=== PATIENT | male | born 1960 | race Hispanic/Latino ===

== ENCOUNTER 2021-08-14 12:43 | Emergency (ER) | payer MEDICARE ==
[2021-08-14 13:12] VITALS: BP 177/93
--- NOTE | 2021-08-14 14:18 | Emergency Department Report ---
ED General Adult HPI - General Chief complaint: Chest Pain Stated complaint: CHEST PAIN Time Seen by Provider: 08/14/21 14:13 Source: patient, EMS Mode of arrival: Wheelchair Limitations: No Limitations - History of Present Illness Initial comments: Patient is 60 years old male with history of open heart surgery, hypertension and depression. Patient brought to the emergency room from a local psychiatric facility for evaluation of chest pain that started last night on and off. Patient describes chest pain as sharp with no radiation, associated with palpitation but no shortness of breath. Patient stated that he is having some chills but no fever. Patient denied any nausea or vomiting. - Related Data Previous Rx's Medication Instructions Recorded Last Taken Type AtorvaSTATin [Lipitor] 40 mg PO QHS #30 tablet 06/06/20 Unknown Rx Clopidogrel [Plavix] 75 mg PO QDAY #30 tablet 06/06/20 Unknown Rx ISOSORBIDE MONOnitrate [Imdur ER] 30 mg PO QDAY #30 tablet 06/06/20 Unknown Rx Losartan [Cozaar] 50 mg PO QDAY #30 tablet 06/06/20 Unknown Rx Metoprolol [Lopressor TAB] 50 mg PO BID #60 tablet 06/06/20 Unknown Rx Allergies Allergy/AdvReac Type Severity Reaction Status Date / Time aspirin Allergy Unknown Verified 06/02/20 17:22 codeine Allergy Swelling Verified 06/02/20 17:22 ED Review of Systems ROS: Stated complaint: CHEST PAIN Other details as noted in HPI Comment: All other systems reviewed and negative Constitutional: chills. denies: fever Respiratory: cough. denies: shortness of breath, SOB with exertion, SOB at rest Cardiovascular: chest pain, palpitations. denies: dyspnea on exertion, ortho pnea Gastrointestinal: denies: abdominal pain, nausea, vomiting, diarrhea, constipation, hematemesis, melena, hematochezia Musculoskeletal: denies: back pain Neurological: denies: headache, weakness ED Past Medical Hx - Past Medical History Previous Medical History?: Yes Hx Hypertension: Yes Hx Psychiatric Treatment: Yes (PTSD, depression) Additional medical history: [place] - Surgical History Past Surgical History?: Yes Hx Open Heart Surgery: Yes - Social History Smoking Status: Unknown if ever smoked Substance Use Type: None - Medications Home Medications: Home Medications Medication Instructions Recorded Confirmed Last Taken Type AtorvaSTATin [Lipitor] 40 mg PO QHS #30 tablet 06/06/20 Unknown Rx Clopidogrel [Plavix] 75 mg PO QDAY #30 tablet 06/06/20 Unknown Rx ISOSORBIDE MONOnitrate [Imdur ER] 30 mg PO QDAY #30 tablet 06/06/20 Unknown Rx Losartan [Cozaar] 50 mg PO QDAY #30 tablet 06/06/20 Unknown Rx Metoprolol [Lopressor TAB] 50 mg PO BID #60 tablet 06/06/20 Unknown Rx ED Physical Exam - General Limitations: No Limitations General appearance: alert, in no apparent distress - Head Head exam: Present: atraumatic, normocephalic, normal inspection - Eye Eye exam: Present: normal appearance, PERRL - ENT ENT exam: Present: normal exam, normal orophraynx, mucous membranes moist - Neck Neck exam: Present: normal inspection, full ROM. Absent: tenderness, meningismus - Respiratory Respiratory exam: Present: normal lung sounds bilaterally - Cardiovascular Cardiovascular Exam: Present: regular rate, normal rhythm, normal heart sounds - GI/Abdominal GI/Abdominal exam: Present: soft, normal bowel sounds. Absent: distended, tenderness, guarding, rebound, rigid, organomegaly, mass, bruit, pulsatile mass, hernia - Extremities Exam Extremities exam: Present: normal inspection, full ROM, normal capillary refill. Absent: tenderness, pedal edema, joint swelling, calf tenderness - Back Exam Back exam: Present: normal inspection, full ROM. Absent: CVA tenderness (R), CVA tenderness (L) - Neurological Exam Neurological exam: Present: alert, oriented X3, CN II-XII intact, normal gait, reflexes normal. Absent: motor sensory deficit - Psychiatric Psychiatric exam: Present: normal mood - Skin Skin exam: Present: warm, intact, normal color ED Course Vital Signs 08/14/21 13:09 Temperature 97.6 F Pulse Rate 65 Respiratory 18 Rate Blood Pressure 177/93 O2 Sat by Pulse 98 Oximetry ED Medical Decision Making - Lab Data Result diagrams: 08/14/21 14:21 08/14/21 14:21 - EKG Data -: EKG Interpreted by Ma EKG shows normal: sinus rhythm Rate: normal - EKG Data Interpretation: no acute changes - Radiology Data Radiology results: report reviewed - Medical Decision Making Patient is 60 years old male with history of open heart surgery, hypertension and depression. Patient brought to the emergency room from a local psychiatric facility for evaluation of chest pain that started last night on and off. Patient describes chest pain as sharp with no radiation, associated with palpitation but no shortness of breath. Patient stated that he is having some chills but no fever. Patient denied any nausea or vomiting. EKG is unremarkable. Labs reviewed and is unremarkable including a negative troponin. Chest x-ray is negative for acute finding. Patient remained stable with stable vital sign. 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 Critical care attestation.: If time is entered above; I have spent that time in minutes in the direct care of this critically ill patient, excluding procedure time. ED Disposition Clinical Impression: Acute chest pain Disposition: 01 HOME / SELF CARE / HOMELESS Is pt being admited?: No Condition: Stable Instructions: Chest Pain (ED), Nonspecific Chest Pain, Adult Referrals: PRIMARY CARE, [Primary Care Provider] - 3-5 Days
[2021-08-14 14:39] LABS: Basophils % (Auto) 0.2 % (0.0-1.8); Eosinophils # (Auto) 0.2 K/mm3 (0.0-0.4); Eosinophils % (Auto) 3.1 % (0.0-4.3); Hemoglobin 12.5 gm/dl (11.8-15.2); Lymphocytes # (Auto) 2.2 K/mm3 (1.2-5.4); Lymphocytes % (Auto) 32.7 % (13.4-35.0); Mean Corpuscular HGB Conc 33 % (32-34); Mean Corpuscular Volume 89 fl (84-94); Monocytes # (Auto) 0.7 K/mm3 (0.0-0.8); Monocytes % (Auto) 11.4 % (0.0-7.3); Platelet Count 245 K/mm3 (140-440); Red Blood Count 4.29 M/mm3 (3.65-5.03); Red Cell Distribution Width 15.5 % (13.2-15.2)
[2021-08-14 14:54] LABS: Blood Urea Nitrogen 16 mg/dL (9-20); Calcium 9.1 mg/dL (8.4-10.2); Hemolysis Index 7
--- NOTE | 2021-08-14 15:00 | XRay Report ---
CHEST 1 VIEW 08/14/2021 2:44 PM INDICATION / CLINICAL INFORMATION: Chest Pain. COMPARISON: 06/02/20 FINDINGS: SUPPORT DEVICES: None. HEART / MEDIASTINUM: Stable. Median sternotomy wires are unchanged. LUNGS / PLEURA: No significant pulmonary or pleural abnormality. No pneumothorax. ADDITIONAL FINDINGS: No significant additional findings. IMPRESSION: 1. No acute findings. Signer Name: Maria Eugenia De Santiago MD Signed: 08/14/2021 2:55 PM Workstation Name: [id number]
[2021-08-14 15:06] LABS: BUN/Creatinine Ratio 23
--- NOTE | 2021-08-21 14:00 | Electrocardiograph Report ---
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
== END 2021-08-14 16:51 | disposition home or self-care (01) ==
LOC: ED 12:43
DX: R07.89 Other chest pain (principal); R00.1 Bradycardia, unspecified; I10 Essential (primary) hypertension; F43.10 Post-traumatic stress disorder, unspecified; F32.9 Major depressive disorder, single episode, unspecified; Z98.890 Other specified postprocedural states; Z88.5 Allergy status to narcotic agent; Z88.6 Allergy status to analgesic agent
CPT/HCPCS: 36415; 71045; 80048; 84484; 85025; 93005; 99284

== ENCOUNTER 2021-11-07 22:40 | Emergency (ER) | payer MEDICARE ==
[2021-11-08] MEDS ORDERED: cloNIDine 0.1 MG TAB PO ONE ×2 (04:11→05:00)
--- NOTE | 2021-11-08 04:16 | Emergency Department Report ---
ED General Adult HPI - General Chief complaint: High BP Stated complaint: HIGH BLOOD PRESSURE Time Seen by Provider: 11/08/21 04:03 Source: patient Mode of arrival: Ambulatory Limitations: No Limitations - History of Present Illness Initial comments: Patient is 61 years old male presented to the ER via EMS from a local psychiatric facility after he has been discharged and found to have a blood pressure of 180/112. Patient currently denying any symptoms. He denied any headache, neck pain, nausea or vomiting. No weakness numbness or tingling sensation. Patient stated that he was taking Cozaar 50 mg but he did not have medication with him. - Related Data Previous Rx's Medication Instructions Recorded Last Taken Type AtorvaSTATin [Lipitor] 40 mg PO QHS #30 tablet 06/06/20 Unknown Rx Clopidogrel [Plavix] 75 mg PO QDAY #30 tablet 06/06/20 Unknown Rx ISOSORBIDE MONOnitrate [Imdur ER] 30 mg PO QDAY #30 tablet 06/06/20 Unknown Rx Losartan [Cozaar] 50 mg PO QDAY #30 tablet 06/06/20 Unknown Rx Metoprolol [Lopressor TAB] 50 mg PO BID #60 tablet 06/06/20 Unknown Rx Allergies Allergy/AdvReac Type Severity Reaction Status Date / Time aspirin Allergy Unknown Verified 11/07/21 23:49 codeine Allergy Swelling Verified 11/07/21 23:49 ED Review of Systems ROS: Stated complaint: HIGH BLOOD PRESSURE Other details as noted in HPI Comment: All other systems reviewed and negative Constitutional: denies: chills, fever Respiratory: denies: cough, shortness of breath, SOB with exertion Cardiovascular: denies: chest pain, palpitations Gastrointestinal: denies: abdominal pain, nausea, vomiting Musculoskeletal: denies: back pain Neurological: denies: headache, weakness, numbness, paresthesias, confusion ED Past Medical Hx - Past Medical History Hx Hypertension: Yes Hx Psychiatric Treatment: Yes (PTSD, depression) Additional medical history: [place] - Surgical History Hx Open Heart Surgery: Yes - Social History Smoking Status: Unknown if ever smoked Substance Use Type: None - Medications Home Medications: Home Medications Medication Instructions Recorded Confirmed Last Taken Type AtorvaSTATin [Lipitor] 40 mg PO QHS #30 tablet 06/06/20 Unknown Rx Clopidogrel [Plavix] 75 mg PO QDAY #30 tablet 06/06/20 Unknown Rx ISOSORBIDE MONOnitrate [Imdur ER] 30 mg PO QDAY #30 tablet 06/06/20 Unknown Rx Losartan [Cozaar] 50 mg PO QDAY #30 tablet 06/06/20 Unknown Rx Metoprolol [Lopressor TAB] 50 mg PO BID #60 tablet 06/06/20 Unknown Rx ED Physical Exam - General Limitations: No Limitations General appearance: alert, in no apparent distress - Head Head exam: Present: atraumatic, normocephalic, normal inspection - Eye Eye exam: Present: normal appearance, PERRL - ENT ENT exam: Present: normal exam, normal orophraynx, mucous membranes moist - Neck Neck exam: Present: normal inspection, full ROM. Absent: tenderness, meningismus - Respiratory Respiratory exam: Present: normal lung sounds bilaterally - Cardiovascular Cardiovascular Exam: Present: regular rate, normal rhythm, normal heart sounds - GI/Abdominal GI/Abdominal exam: Present: soft, normal bowel sounds. Absent: distended, tende rness, guarding, rebound, rigid, organomegaly, mass, bruit, pulsatile mass, hernia - Extremities Exam Extremities exam: Present: normal inspection, full ROM, normal capillary refill. Absent: tenderness - Back Exam Back exam: Present: normal inspection, full ROM. Absent: CVA tenderness (R), CVA tenderness (L) - Neurological Exam Neurological exam: Present: alert, oriented X3, CN II-XII intact - Psychiatric Psychiatric exam: Present: normal mood - Skin Skin exam: Present: warm, intact, normal color ED Course Vital Signs 11/07/21 11/08/21 11/08/21 23:49 04:24 04:30 Temperature 98.9 F Pulse Rate 98 H 83 84 Respiratory 18 17 Rate Blood Pressure 207/100 Blood Pressure 182/113 194/116 [Right] O2 Sat by Pulse 97 97 Oximetry 11/08/21 11/08/21 11/08/21 05:00 05:02 05:27 Temperature Pulse Rate 72 72 69 Respiratory 17 17 Rate Blood Pressure 186/104 152/88 Blood Pressure 186/104 [Right] O2 Sat by Pulse 98 99 Oximetry ED Medical Decision Making - Lab Data Result diagrams: 11/08/21 04:30 11/08/21 04:30 - Medical Decision Making Patient is 61 years old male presented to the ER via EMS from a local psychiatric facility after he has been discharged and found to have a blood pressure of 180/112. Patient currently denying any symptoms. He denied any headache, neck pain, nausea or vomiting. No weakness numbness or tingling sensation. Patient stated that he was taking Cozaar 50 mg but he did not have medication with him. Labs reviewed and is unremarkable. Patient received clonidine 0.3 mg with significant improvement in his blood pressure. Patient given prescription for Cozaar and advised to follow-up with his primary doctor in the next 2 to 3 days and to return to the ER if he started having any symptoms. Critical care attestation.: If time is entered above; I have spent that time in minutes in the direct care of this critically ill patient, excluding procedure time. ED Disposition Clinical Impression: Malignant hypertension Disposition: 01 HOME / SELF CARE / HOMELESS Is pt being admited?: No Condition: Stable Instructions: Hypertension (ED), Hypertension, Adult Referrals: PRIMARY CARE, [Primary Care Provider] - 3-5 Days
[2021-11-08 04:45] LABS: Basophils % (Auto) 0.3 % (0.0-1.8); Eosinophils # (Auto) 0.1 K/mm3 (0.0-0.4); Eosinophils % (Auto) 0.8 % (0.0-4.3); Hematocrit 41.8 % (35.5-45.6); Hemoglobin 13.6 gm/dl (11.8-15.2); Lymphocytes # (Auto) 1.7 K/mm3 (1.2-5.4); Lymphocytes % (Auto) 22.7 % (13.4-35.0); Mean Corpuscular HGB Conc 33 % (32-34); Mean Corpuscular Volume 89 fl (84-94); Monocytes # (Auto) 0.7 K/mm3 (0.0-0.8); Monocytes % (Auto) 8.8 % (0.0-7.3); Platelet Count 236 K/mm3 (140-440); Red Blood Count 4.72 M/mm3 (3.65-5.03); Red Cell Distribution Width 15.5 % (13.2-15.2)
[2021-11-08 05:04] LABS: BUN/Creatinine Ratio 11; Blood Urea Nitrogen 9 mg/dL (9-20); Calcium 9.4 mg/dL (8.4-10.2); Hemolysis Index 5
[2021-11-08 05:32] VITALS: BP 152/88
== END 2021-11-09 05:08 | disposition home or self-care (01) ==
LOC: ED 22:40
DX: I10 Essential (primary) hypertension (principal); Z98.890 Other specified postprocedural states; Z88.5 Allergy status to narcotic agent; Z88.8 Allergy status to other drugs, medicaments and biological substances
CPT/HCPCS: 36415; 80048; 85025; 99284